=== PATIENT | female | born 1980 | race Caucasian/White ===

== ENCOUNTER 2023-09-12 09:08 | Observation (INO) ==
[~2023-09-12 09:08] MED LIST: Buffered Lidocaine 1% SYRIN 1 ml INTRADERM ONE; Lactated Ringers 1000 ml BAG 1,000 ML IV SCH; Naloxone 0.4 mg VIAL 0.4 mg/ml 1 ml VIAL IV PRN; Ondansetron 4 mg VIAL 2 MG/ML 2 ml VIAL IV PRN
[2023-09-12] MEDS ORDERED: ceFAZolin 2 GM in NS PREMIX 2 GM/100 ML BAG IVPB ONE (09:19)
[2023-09-12] MEDS ORDERED: Propofol 10 MG/ML 20 ML BTL ONE ×2 (09:23→12:49)
[2023-09-12] MEDS ORDERED: Lidocaine 2% PF 5 ML VIAL ONE (09:26)
[2023-09-12] MEDS ORDERED: Midazolam 2 mg/2 ml VIAL 1 mg/ml 2 ml VIAL (2 mg) ONE (09:29)
[2023-09-12] MEDS ORDERED: KETAMINE HCL 10 MG/ML 20 ml VIAL (200 MG) ONE (09:29)
[2023-09-12 09:51] LABS: Rapid COVID-19 Molecular Undetected (Undetected)
[2023-09-12] MEDS ORDERED: Midazolam 5 mg/5 ml VIAL 1 mg/ml 5 ml VIAL (5 mg) ONE (09:55)
[2023-09-12] MEDS ORDERED: ROPIVACAINE 5 MG/ML 30 ML BTL (0.5%) ONE (11:37)
[2023-09-12] MEDS ORDERED: fentaNYL 100 mcg/2 ml 50 MCG/ML VIAL ONE ×2 (11:50→15:50)
[2023-09-12] MEDS ORDERED: Phenylephrine 40 mcg/mL 10mL (400mcg) SYRINGE ONE (12:02)
[2023-09-12] MEDS ORDERED: Lactulose 30 ml UDC PO PRN (12:47)
[2023-09-12] MEDS ORDERED: Ondansetron 4 mg VIAL 2 MG/ML 2 ml VIAL IV PRN (12:47)
[2023-09-12] MEDS ORDERED: Ondansetron ODT 4 mg TAB 4 MG TAB PO PRN (12:47)
[2023-09-12] MEDS ORDERED: Acetaminophen IV 1 GM/100ML 1,000 MG/100 ML BAG IV ONE (14:25)
[2023-09-12] MEDS: fentaNYL 100 mcg/2 ml 50 MCG/ML VIAL IV PRN ×4 (15:52→16:12)
[2023-09-12] MEDS ORDERED: Albuterol HFA INHALER 8 gm MDI INH PRN (15:56)
[2023-09-12] MEDS: Lactated Ringers 1000 ml BAG 1,000 ML IV SCH (17:28)
[2023-09-12] MEDS: ceFAZolin 1 GM ADVAN 1 GM in NS 0.9% 50 ML 50 ML IVPB SCH (20:05)
[2023-09-12] MEDS: Magnesium Hydroxide LIQ 30 ML UDC PO SCH (20:07)
[2023-09-12] MEDS: CMCS: Doxepin 25 mg CAP (NF) PO SCH (20:12)
[2023-09-12] MEDS: Morphine 2 MG/ML SYRINGE IV PRN (23:31)
[2023-09-12] MEDS: OXAPROZIN 600 MG PO SCH (23:57)
[2023-09-12] MEDS: MILNACIPRAN 50 MG PO SCH (23:57)
[2023-09-13] MEDS: Lactated Ringers 1000 ml BAG 1,000 ML IV SCH (03:47)
[2023-09-13] MEDS: ceFAZolin 1 GM ADVAN 1 GM in NS 0.9% 50 ML 50 ML IVPB SCH ×2 (04:33→13:05)
[2023-09-13 07:09] LABS: Hematocrit 30.8 % (35-45); Hemoglobin 10.6 g/dL (11.5-14.3); Mean Platelet Volume 10.8 fL (7.5-11.2); Platelet Count 276 10^3/uL (150-450)
[2023-09-13 07:43] LABS: Calcium 8.8 mg/dL (8.6-10.3); Creatinine, Serum 0.8 mg/dL (0.51-0.95); eGFR CKD-EPI 94.9 (>60)
[2023-09-13] MEDS ORDERED: Lactated Ringers 1000 ml BAG 1,000 ML IV ONE (08:04)
[2023-09-13] MEDS ORDERED: Ethinyl Estradiol/Drospirenone TABLE(NF)T PO SCH (09:00)
[2023-09-13 09:03] LABS: Potassium 4.3 mmol/L (3.5-5.0)
[2023-09-13] MEDS: MILNACIPRAN 50 MG PO SCH ×2 (09:08→20:42)
[2023-09-13] MEDS: OXAPROZIN 600 MG PO SCH ×2 (09:08→20:46)
[2023-09-13] MEDS: Nicotine PATCH 7 MG/24 HR PATCH TRANSDERM SCH (09:09)
[2023-09-13] MEDS: Magnesium Hydroxide LIQ 30 ML UDC PO SCH ×2 (09:11→20:45)
[2023-09-13] MEDS: Vitamin THERAPEUTIC TAB PO SCH (09:11)
[2023-09-13] MEDS: Morphine 2 MG/ML SYRINGE IV PRN ×3 (10:30→23:36)
[2023-09-13] MEDS: CMCS: Doxepin 25 mg CAP (NF) PO SCH (20:44)
[2023-09-14 06:11] LABS: Hematocrit 26.4 % (35-45); Hemoglobin 9.1 g/dL (11.5-14.3); Mean Platelet Volume 10.5 fL (7.5-11.2); Platelet Count 238 10^3/uL (150-450)
[2023-09-14] MEDS: Magnesium Hydroxide LIQ 30 ML UDC PO SCH ×2 (09:30→20:34)
[2023-09-14] MEDS: Vitamin THERAPEUTIC TAB PO SCH (09:30)
[2023-09-14] MEDS: PTO: Omeprazole 20 mg CAP (NF) PO SCH (09:31)
[2023-09-14] MEDS: MILNACIPRAN 50 MG PO SCH ×2 (09:32→20:28)
[2023-09-14] MEDS: LORYNA PO SCH (09:32)
[2023-09-14] MEDS: OXAPROZIN 600 MG PO SCH ×2 (09:33→20:35)
[2023-09-14] MEDS: Nicotine PATCH 7 MG/24 HR PATCH TRANSDERM SCH (10:13)
[2023-09-14] MEDS: CMCS: Doxepin 25 mg CAP (NF) PO SCH (20:28)
[2023-09-15 06:29] LABS: Hematocrit 23.7 % (35-45); Hemoglobin 8.2 g/dL (11.5-14.3); Mean Platelet Volume 10.6 fL (7.5-11.2); Platelet Count 230 10^3/uL (150-450)
[2023-09-15] MEDS: Vitamin THERAPEUTIC TAB PO SCH (08:56)
[2023-09-15] MEDS: PTO: Omeprazole 20 mg CAP (NF) PO SCH (08:57)
[2023-09-15] MEDS: LORYNA PO SCH (08:58)
[2023-09-15] MEDS: MILNACIPRAN 50 MG PO SCH ×2 (08:58→21:06)
[2023-09-15] MEDS: Magnesium Hydroxide LIQ 30 ML UDC PO PRN ×2 (08:59→21:13)
[2023-09-15] MEDS: Nicotine PATCH 7 MG/24 HR PATCH TRANSDERM SCH (09:00)
[2023-09-15] MEDS: OXAPROZIN 600 MG PO SCH ×2 (09:05→21:15)
[2023-09-15] MEDS: Magnesium Hydroxide LIQ 30 ML UDC PO SCH ×2 (09:06→21:14)
[2023-09-15] MEDS: oxyCODONE SR 20 mg TAB PO SCH ×2 (10:52→21:10)
[2023-09-15] MEDS: CMCS: Doxepin 25 mg CAP (NF) PO SCH (21:06)
[2023-09-16 06:00] LABS: Hematocrit 23.2 % (35-45); Hemoglobin 7.9 g/dL (11.5-14.3); Mean Platelet Volume 9.8 fL (7.5-11.2); Platelet Count 321 10^3/uL (150-450)
[2023-09-16] MEDS: oxyCODONE SR 10 mg TAB PO SCH ×2 (08:03→22:07)
[2023-09-16] MEDS: oxyCODONE SR 20 mg TAB PO SCH ×2 (08:03→22:07)
[2023-09-16] MEDS: Vitamin THERAPEUTIC TAB PO SCH (08:04)
[2023-09-16] MEDS: MILNACIPRAN 50 MG PO SCH ×2 (08:04→22:10)
[2023-09-16] MEDS: Magnesium Hydroxide LIQ 30 ML UDC PO SCH ×2 (08:04→23:30)
[2023-09-16] MEDS: PTO: Omeprazole 20 mg CAP (NF) PO SCH (08:05)
[2023-09-16] MEDS: LORYNA PO SCH (08:05)
[2023-09-16] MEDS: Nicotine PATCH 7 MG/24 HR PATCH TRANSDERM SCH (08:09)
[2023-09-16] MEDS: OXAPROZIN 600 MG PO SCH ×2 (08:39→22:11)
[2023-09-16] MEDS: CMCS: Doxepin 25 mg CAP (NF) PO SCH (22:11)
[2023-09-17 07:02] LABS: Calcium 8.5 mg/dL (8.6-10.3); Creatinine, Serum 0.68 mg/dL (0.51-0.95); Potassium 4.4 mmol/L (3.5-5.0); eGFR CKD-EPI 112.1 (>60)
[2023-09-17 07:27] LABS: TSH Ultra Thyroid Stim Horm 5.43 mcIU/mL (0.34-5.60)
[2023-09-17 07:44] LABS: Hematocrit 24.4 % (35-45); Hemoglobin 8.4 g/dL (11.5-14.3); Mean Platelet Volume 8.8 fL (7.5-11.2); Platelet Count 481 10^3/uL (150-450)
[2023-09-17] MEDS: oxyCODONE SR 10 mg TAB PO SCH (08:33)
[2023-09-17] MEDS: Vitamin THERAPEUTIC TAB PO SCH (08:33)
[2023-09-17] MEDS: PTO: Omeprazole 20 mg CAP (NF) PO SCH (08:34)
[2023-09-17] MEDS: oxyCODONE SR 20 mg TAB PO SCH (08:34)
[2023-09-17] MEDS: Magnesium Hydroxide LIQ 30 ML UDC PO SCH (08:34)
[2023-09-17] MEDS: OXAPROZIN 600 MG PO SCH (08:35)
[2023-09-17] MEDS: MILNACIPRAN 50 MG PO SCH (08:35)
[2023-09-17] MEDS: LORYNA PO SCH (08:35)
[2023-09-17] MEDS: Nicotine PATCH 7 MG/24 HR PATCH TRANSDERM SCH (08:36)
[2023-09-17 10:31] VITALS: BP 105/67
== END 2023-09-17 12:26 | disposition home or self-care (01) ==
LOC: OR 09:08 → SSU 09:08 → EDSTATUS 13:45
PROVIDERS: ADMIT Orthopaedic Surgery Adult Reconstructive Orthopaedic Surgery; ATTEND Orthopaedic Surgery Adult Reconstructive Orthopaedic Surgery

== ENCOUNTER 2024-08-10 09:49 | Inpatient (IN) ==
[2024-08-10 11:22] LABS: Hematocrit 37.4 % (35-45); Hemoglobin 12.5 g/dL (11.5-14.3); Mean Corpuscular Hemoglobin 32.6 pg (27-33); Mean Corpuscular Hgb Conc 33.4 g/dL (31-36); Mean Corpuscular Volume 97.8 fL (80-97); Mean Platelet Volume 9.1 fL (7.5-11.2); Platelet Count 520 10^3/uL (150-450); Red Blood Count 3.82 10^6/uL (3.63-4.92); Red Cell Distribution Width 17.4 % (12-17); White Blood Count 14.7 10^3/uL (3.8-11.8)
[2024-08-10 11:31] LABS: Activated Partial Thrombo Time 41.5 seconds (26.0-38.0); INR 1.25 (0.85-1.14)
[2024-08-10 11:41] LABS: High Sens Troponin Baseline 7 pg/mL (<15)
[2024-08-10 11:47] LABS: ABS Lymphocytes 5.7 10^3/uL (1.0-4.8); ABS Nucleated RBC 0.04 10^3/ul; Eosinophil % 0.1 %; Lymphocyte % 38.7 %; Nucleated Red Blood Cells % 0.3 %/100WBC (0.0-0.8)
[2024-08-10 11:48] LABS: ALT 31 U/L (7-52); Albumin 2.4 g/dL (3.2-5.2); Alkaline Phosphatase 89 U/L (35-149); Anion Gap 20 mmol/L (2-16); Blood Urea Nitrogen 61 mg/dL (6-24); CO2 Carbon Dioxide 13 mmol/L (22-32); Calcium 8.4 mg/dL (8.6-10.3); Chloride 93 mmol/L (101-111); Creatinine, Serum 2.45 mg/dL (0.51-0.95); Globulin 2.4 g/dL (2-4); Glucose 100 mg/dL (70-100); Sodium 126 mmol/L (135-145); Total Bilirubin 0.4 mg/dL (0.2-1.0); Total Protein 4.8 g/dL (6.4-8.9); eGFR CKD-EPI 24.6 (>60)
[2024-08-10 11:49] LABS: C Reactive Protein < 1.00 mg/L (<8.01)
[2024-08-10 12:26] LABS: Venous Bicarbonate HCO3 14.3 mmol/L (24-28)
[2024-08-10 13:32] LABS: Potassium Redraw 3.9 mmol/L (3.5-5.0)
[2024-08-10 15:12] LABS: Urine Appearance Clear; Urine Bilirubin Negative (Negative); Urine Blood Negative (Negative); Urine Color Yellow; Urine Glucose Negative (Negative); Urine Ketones Negative (Negative); Urine Nitrite Negative (Negative); Urine Protein Negative (Negative); Urine Specific Gravity 1.018 (1.002-1.030); Urine Urobilinogen Negative (Negative)
[2024-08-10 15:20] LABS: Urine Chloride Concentration < 22 mmol/L; Urine Potassium Concentration 17.6 mmol/L; Urine Sodium Concentration < 18 mmol/L
[2024-08-10] MEDS ORDERED: Senna TAB 8.6 mg TAB PO PRN (15:34)
[2024-08-10] MEDS ORDERED: Lidocaine PATCH 5% PATCH TRANSDERM PRN (15:36)
[2024-08-10] MEDS ORDERED: Naloxone Nasal Spray 4 MG/0.1 ML NASAL.SPR INTRANASAL PRN (15:36)
[2024-08-10] MEDS ORDERED: Albuterol HFA INHALER 8 gm MDI INH PRN (15:36)
[2024-08-10] MEDS: Enoxaparin 30 MG/0.3 ML SYR SUBCUT SCH (17:21)
[2024-08-10] MEDS: Lactated Ringers 1000 ml BAG 1,000 ML IV ONE (17:22)
[2024-08-10] MEDS: Nicotine PATCH 7 MG/24 HR PATCH TRANSDERM SCH (17:29)
[2024-08-10] MEDS: oxyCODONE SR 10 mg TAB PO SCH (17:59)
[2024-08-10] MEDS: CMC:Doxepin 25 mg CAP (NF) PO SCH (20:50)
[2024-08-10 23:41] LABS: Urine Creatinine Concentration 79.79 mg/dL (20.00-320.00)
[2024-08-11 06:57] LABS: Hematocrit 36.9 % (35-45); Hemoglobin 12.3 g/dL (11.5-14.3); Mean Corpuscular Hemoglobin 32.7 pg (27-33); Mean Corpuscular Hgb Conc 33.2 g/dL (31-36); Mean Corpuscular Volume 98.5 fL (80-97); Mean Platelet Volume 8.7 fL (7.5-11.2); Platelet Count 440 10^3/uL (150-450); Red Blood Count 3.75 10^6/uL (3.63-4.92); Red Cell Distribution Width 18.3 % (12-17); White Blood Count 13.5 10^3/uL (3.8-11.8)
[2024-08-11 07:11] LABS: Albumin 2.1 g/dL (3.2-5.2); Albumin/Globulin Ratio 0.9 (1-3); Calcium 8.5 mg/dL (8.6-10.3); Creatinine, Serum 2.31 mg/dL (0.51-0.95); Globulin 2.3 g/dL (2-4); Magnesium 1.9 mg/dL (1.9-2.7); Potassium 4.1 mmol/L (3.5-5.0); Total Bilirubin 0.3 mg/dL (0.2-1.0); Total Protein 4.4 g/dL (6.4-8.9); eGFR CKD-EPI 26.4 (>60)
[2024-08-11 08:24] LABS: Anisocytosis 1+; Macrocytosis 1+; Smudge Cells Present
[2024-08-11 08:26] LABS: ABS Monocytes 0.5 10^3/ul (0.0-0.9); ABS Neutrophils 10.7 10^3/ul (1.5-7.6)
[2024-08-11 08:27] LABS: ABS Eosinophils 0.3 10^3/ul (0.0-0.5)
[2024-08-11] MEDS: CARIPRAZINE 3 MG PO SCH (10:37)
[2024-08-11] MEDS: Lactated Ringers 1000 ml BAG 1,000 ML IV ONE ×2 (10:47→13:17)
[2024-08-11] MEDS: Ondansetron 4 mg VIAL 2 MG/ML 2 ml VIAL IV PRN (12:05)
[2024-08-11 14:33] LABS: Phosphorus 4.9 mg/dL (2.5-5.0)
[2024-08-11 14:38] LABS: Ferritin 150.1 ng/mL (11-307)
[2024-08-11 15:05] LABS: Urine Appearance Turbid; Urine Bilirubin Negative (Negative); Urine Blood 3+ (Negative); Urine Color Yellow; Urine Glucose Negative (Negative); Urine Ketones Negative (Negative); Urine Nitrite Negative (Negative); Urine Protein Negative (Negative); Urine Specific Gravity 1.016 (1.002-1.030); Urine Urobilinogen Negative (Negative)
[2024-08-11 15:17] LABS: Urine Bacteria Absent /HPF (Absent); Urine Red Blood Cell 3+(>10/hpf) /HPF (0-Trace); Urine Squamous Epithelial Cell Present /HPF (Absent); Urine White Blood Cell 3+(>20/hpf) /HPF (0-Trace)
[2024-08-11 15:24] LABS: Calcium 7.8 mg/dL (8.6-10.3); Creatinine, Serum 2.14 mg/dL (0.51-0.95); Potassium 4.7 mmol/L (3.5-5.0); eGFR CKD-EPI 28.9 (>60)
[2024-08-11] MEDS: Lactated Ringers 1000 ml BAG 1,000 ML IV SCH (16:49)
[2024-08-11] MEDS: Nystatin TOP POWDER 15 GM BTL TOPICAL SCH (21:52)
[2024-08-12 09:00] LABS: Hematocrit 36.6 % (35-45); Hemoglobin 11.7 g/dL (11.5-14.3); Mean Corpuscular Hemoglobin 32.4 pg (27-33); Mean Corpuscular Hgb Conc 32.1 g/dL (31-36); Mean Corpuscular Volume 101.1 fL (80-97); Mean Platelet Volume 7.9 fL (7.5-11.2); Platelet Count 357 10^3/uL (150-450); Red Blood Count 3.62 10^6/uL (3.63-4.92); Red Cell Distribution Width 18.8 % (12-17); White Blood Count 14.4 10^3/uL (3.8-11.8)
[2024-08-12 09:17] LABS: ALT 26 U/L (7-52); Alkaline Phosphatase 95 U/L (35-149); Anion Gap 19 mmol/L (2-16); Blood Urea Nitrogen 49 mg/dL (6-24); CO2 Carbon Dioxide 11 mmol/L (22-32); Calcium 7.8 mg/dL (8.6-10.3); Chloride 93 mmol/L (101-111); Creatinine, Serum 1.78 mg/dL (0.51-0.95); Globulin 2.1 g/dL (2-4); Glucose 77 mg/dL (70-100); Magnesium 1.7 mg/dL (1.9-2.7); Sodium 123 mmol/L (135-145); Total Bilirubin 0.4 mg/dL (0.2-1.0); Total Protein 4.1 g/dL (6.4-8.9); eGFR CKD-EPI 36.1 (>60)
[2024-08-12 09:30] LABS: Potassium, Whole Blood 4.2 mmol/L (3.4-4.5)
[2024-08-12 10:13] LABS: ABS Eosinophils 0.1 10^3/ul (0.0-0.5); ABS Lymphocytes 4.6 10^3/ul (1.0-4.8); ABS Monocytes 0.7 10^3/ul (0.0-0.9); ABS Neutrophils 8.9 10^3/ul (1.5-7.6)
[2024-08-12 10:14] LABS: Hypochromasia 1+; Macrocytosis 1+
[2024-08-12 13:09] LABS: PCO2 Arterial 20 mmHg (35-45); PO2 Arterial 126 mmHg (80-100)
[2024-08-12 13:37] LABS: Urine Appearance Clear; Urine Bilirubin Negative (Negative); Urine Blood 3+ (Negative); Urine Color Yellow; Urine Glucose Negative (Negative); Urine Ketones Negative (Negative); Urine Nitrite 2+ (Negative); Urine Protein Negative (Negative); Urine Specific Gravity 1.015 (1.002-1.030); Urine Urobilinogen Negative (Negative)
[2024-08-12 13:41] LABS: Urine Bacteria 1+ /HPF (Absent); Urine Red Blood Cell 3+(>10/hpf) /HPF (0-Trace); Urine Squamous Epithelial Cell Present /HPF (Absent); Urine White Blood Cell 1+(6-10/hpf) /HPF (0-Trace)
[2024-08-12 14:03] LABS: Urine Osmo 337 mOsm/kg (150-1150)
[2024-08-12 17:54] LABS: Folate > 20.00 ng/mL (5.90-24.80)
[2024-08-12 17:55] LABS: Vitamin B12 > 1450 pg/mL (180-914)
[2024-08-12 19:24] LABS: Hepatitis C Antibody Negative (Negative)
[2024-08-12] MEDS: Furosemide 40 mg/4 ml IV VIAL IV ONE (19:38)
[2024-08-12 21:11] LABS: Hepatitis B Surface Ab Indeterminate (Immune)
[2024-08-13] MEDS: Benzocaine/Menthol LOZ PO PRN (04:53)
[2024-08-13 11:08] LABS: Hematocrit 37.5 % (35-45); Mean Corpuscular Hemoglobin 32.3 pg (27-33); Mean Corpuscular Hgb Conc 31.9 g/dL (31-36); Mean Corpuscular Volume 101.1 fL (80-97); Mean Platelet Volume 8.5 fL (7.5-11.2); Platelet Count 409 10^3/uL (150-450); Red Blood Count 3.71 10^6/uL (3.63-4.92); Red Cell Distribution Width 18.9 % (12-17); White Blood Count 20.4 10^3/uL (3.8-11.8)
[2024-08-13 11:40] LABS: C Reactive Protein 1.54 mg/L (<8.01); Calcium 8.1 mg/dL (8.6-10.3); Creatinine, Serum 1.59 mg/dL (0.51-0.95); Magnesium 1.7 mg/dL (1.9-2.7); Potassium 4.4 mmol/L (3.5-5.0); eGFR CKD-EPI 41.3 (>60)
[2024-08-13 12:04] LABS: Hepatitis B Surface Antigen Nonreactive (Nonreactive)
[2024-08-13] MEDS: Furosemide 40 mg/4 ml IV VIAL IV SLOW PU ONE (12:44)
[2024-08-13 13:48] LABS: Anisocytosis 1+; Hypochromasia 1+; Macrocytosis 1+; Polychromasia 1+
[2024-08-13 13:49] LABS: ABS Monocytes 0.2 10^3/ul (0.0-0.9); ABS Neutrophils 19.2 10^3/ul (1.5-7.6)
[2024-08-13] MEDS: Magnesium Sulfate 2 gm BAG 2 GM/50 ML BAG IVPB ONE (16:06)
[2024-08-13] MEDS: Magnesium Sulfate IV 1GM/100ML 1 GM/100 ML BAG IV ONE (17:30)
[2024-08-13] MEDS: Enoxaparin 40 MG/0.4 ML SYR SUBCUT SCH (17:30)
[2024-08-13 18:21] LABS: Blood Urea Nitrogen 46 mg/dL (6-24); Calcium 7.8 mg/dL (8.6-10.3); Chloride 91 mmol/L (101-111); Creatinine, Serum 1.55 mg/dL (0.51-0.95); Glucose 105 mg/dL (70-100); Sodium 128 mmol/L (135-145); eGFR CKD-EPI 42.6 (>60)
[2024-08-13 18:22] LABS: Anion Gap 25 mmol/L (2-16); CO2 Carbon Dioxide 12 mmol/L (22-32)
[2024-08-13 20:39] LABS: Potassium, Whole Blood 4.1 mmol/L (3.4-4.5)
[2024-08-14 08:49] LABS: Calcium 7.5 mg/dL (8.6-10.3); Creatinine, Serum 1.46 mg/dL (0.51-0.95); Magnesium 2.1 mg/dL (1.9-2.7); Potassium 4.5 mmol/L (3.5-5.0); eGFR CKD-EPI 45.8 (>60)
[2024-08-14 09:03] LABS: Hematocrit 34.2 % (35-45); Hemoglobin 11.6 g/dL (11.5-14.3); Mean Corpuscular Hemoglobin 33.6 pg (27-33); Mean Corpuscular Hgb Conc 33.9 g/dL (31-36); Mean Corpuscular Volume 99.1 fL (80-97); Mean Platelet Volume 8.2 fL (7.5-11.2); Platelet Count 413 10^3/uL (150-450); Red Blood Count 3.45 10^6/uL (3.63-4.92); Red Cell Distribution Width 18.7 % (12-17); White Blood Count 14.4 10^3/uL (3.8-11.8)
[2024-08-14 09:14] LABS: Alcohol, S < 13 mg/dL (<13); Salicylate < 2.50 mg/dL (<30)
[2024-08-14 09:41] LABS: Macrocytosis 1+
[2024-08-14 09:42] LABS: ABS Neutrophils 12.1 10^3/ul (1.5-7.6)
[2024-08-14 09:43] LABS: ABS Eosinophils 0.1 10^3/ul (0.0-0.5); ABS Lymphocytes 1.6 10^3/ul (1.0-4.8); ABS Monocytes 0.6 10^3/ul (0.0-0.9)
[2024-08-14 09:45] LABS: Smudge Cells Present
[2024-08-14] MEDS: Furosemide 40 mg/4 ml IV VIAL IV SLOW PU ONE (11:58)
[2024-08-14] MEDS: Famotidine IV 10 MG/ML 2 ml VIAL (20 mg) IV SLOW PU ONE (13:32)
[2024-08-14 15:41] LABS: Cholesterol 289 mg/dL; HDL Cholesterol 38.8 mg/dL; Triglycerides 799 mg/dL
[2024-08-14] MEDS: Ure-Na 15 GM POWD.PACK PO SCH (16:19)
[2024-08-14 16:28] LABS: Osmolality Serum 272 mOsm/kg (275-295)
[2024-08-14] MEDS: Furosemide 40 mg/4 ml IV VIAL IV ONE (17:00)
[2024-08-14 17:11] LABS: TSH Ultra Thyroid Stim Horm 11.05 mcIU/mL (0.34-5.60)
[2024-08-14 18:07] LABS: Creatine Kinase 26 U/L (10-223); LDL Cholesterol Direct 139 mg/dL
[2024-08-15 07:20] LABS: Hematocrit 34.5 % (35-45); Hemoglobin 11.7 g/dL (11.5-14.3); Mean Corpuscular Hemoglobin 34.5 pg (27-33); Mean Corpuscular Volume 101.4 fL (80-97); Mean Platelet Volume 8.5 fL (7.5-11.2); Platelet Count 397 10^3/uL (150-450); Red Cell Distribution Width 18.9 % (12-17); White Blood Count 14.1 10^3/uL (3.8-11.8)
[2024-08-15 07:45] LABS: Calcium 7.4 mg/dL (8.6-10.3); Creatinine, Serum 1.17 mg/dL (0.51-0.95); Magnesium 1.9 mg/dL (1.9-2.7); Phosphorus 2.7 mg/dL (2.5-5.0); Potassium 3.8 mmol/L (3.5-5.0); eGFR CKD-EPI 59.7 (>60)
[2024-08-15 07:59] LABS: Macrocytosis 1+; Smudge Cells Present
[2024-08-15 08:00] LABS: ABS Lymphocytes 2.7 10^3/ul (1.0-4.8); ABS Monocytes 0.3 10^3/ul (0.0-0.9); ABS Neutrophils 11.1 10^3/ul (1.5-7.6)
[2024-08-15] MEDS: Furosemide 100 mg/10 ml IV VIAL IV ONE (12:27)
[2024-08-16 05:54] LABS: Hematocrit 31.5 % (35-45); Hemoglobin 10.8 g/dL (11.5-14.3); Mean Corpuscular Hemoglobin 34.4 pg (27-33); Mean Corpuscular Hgb Conc 34.2 g/dL (31-36); Mean Corpuscular Volume 100.6 fL (80-97); Mean Platelet Volume 8.5 fL (7.5-11.2); Platelet Count 408 10^3/uL (150-450); Red Blood Count 3.13 10^6/uL (3.63-4.92); Red Cell Distribution Width 19.1 % (12-17)
[2024-08-16 07:24] LABS: Calcium 7.4 mg/dL (8.6-10.3); Creatinine, Serum 1.01 mg/dL (0.51-0.95); Magnesium 1.8 mg/dL (1.9-2.7); Potassium 3.5 mmol/L (3.5-5.0); eGFR CKD-EPI 71.3 (>60)
[2024-08-16 07:51] LABS: ABS Lymphocytes 3.1 10^3/ul (1.0-4.8); ABS Neutrophils 9.2 10^3/ul (1.5-7.6); Macrocytosis 1+; Smudge Cells Present
[2024-08-16 07:52] LABS: ABS Eosinophils 0.3 10^3/ul (0.0-0.5); ABS Monocytes 0.4 10^3/ul (0.0-0.9)
[2024-08-16 07:55] LABS: Free T4 1.1 ng/dL (0.61-1.12)
[2024-08-16] MEDS: Magnesium Sulfate 2 gm BAG 2 GM/50 ML BAG IVPB ONE (09:26)
[2024-08-16] MEDS: Furosemide 40 mg/4 ml IV VIAL IV SLOW PU ONE (14:46)
[2024-08-16 18:08] VITALS: BP 117/85
== END 2024-08-16 20:35 | disposition home health service (06) | DRG 469 ==
LOC: ED 09:49 → EDHOLD 09:49 → SUATTDRO 15:34 → MED 17:50 → SUATTDRO 08-11 09:00
PROVIDERS: ADMIT Hospitalist; ATTEND Hospitalist